=== PATIENT | female | born 1965 ===

== ENCOUNTER 2017-10-12 21:43 | Emergency (ER) | payer BC ==
--- NOTE | 2017-10-12 22:09 | EDM.PDOC ---
ED HPI GENERAL MEDICAL PROBLEM - General Chief Complaint: General Stated Complaint: FEEL SICK [id number] Time Seen by Provider: 10/12/17 22:01 Source of Information: Reports: Patient History Limitations: Reports: No Limitations - History of Present Illness INITIAL COMMENTS - FREE TEXT/NARRATIVE: Sick for one week with cough congestion no relief with OTC Middle Chest Pain Score (Numeric/FACES): 5 - Related Data Allergies Allergy/AdvReac Type Severity Reaction Status Date / Time No Known Allergies Allergy Verified 10/12/17 21:59 Home Meds: Home Meds Levothyroxine 112 mcg PO ACBREAKFAST 10/12/17 [History] metFORMIN HCl [Metformin HCl ER] 2,000 mg PO BID 10/12/17 [History] Past Medical History Endocrine/Metabolic History: Reports: Diabetes, Type II, Hypothyroidism Social & Family History - Tobacco Use Smoking Status *Q: Never Smoker Second Hand Smoke Exposure: Yes - Caffeine Use Caffeine Use: Reports: Coffee - Recreational Drug Use Recreational Drug Use: No ED ROS GENERAL - Review of Systems Review Of Systems: See Below Constitutional: Reports: Fever, Malaise HEENT: Reports: Sinus Problem, Throat Pain (mild) Respiratory: Reports: Pleuritic Chest Pain (with cough), Cough Cardiovascular: Reports: No Symptoms GI/Abdominal: Reports: No Symptoms Musculoskeletal: Reports: No Symptoms Skin: Reports: No Symptoms Neurological: Reports: No Symptoms ED EXAM, GENERAL - Physical Exam Exam: See Below Exam Limited By: No Limitations General Appearance: Alert, Mild Distress Eye Exam: Bilateral Eye: EOMI Ear Exam: Bilateral Ear: Other (fluid, no redness) Nose: Clear Rhinorrhea, Other (congested) Throat/Mouth: No: Normal Voice (hoarse) Head: Atraumatic, Normocephalic, Sinus Tenderness Neck: Normal Inspection, Full Range of Motion. No: Lymphadenopathy (L), Lymphadenopathy (R) Respiratory/Chest: No Respiratory Distress, Other (loose bronchial cough) GI/Abdominal: Normal Bowel Sounds, Soft, Non-Tender Extremities: Normal Inspection Neurological: Alert, Oriented, Normal Cognition Psychiatric: Normal Affect Skin Exam: Warm, Dry, Intact, Pallor Course - Vital Signs Last Recorded V/S: Last Vital Signs Temp 97.2 F 10/12/17 21:48 Pulse 109 H 10/12/17 21:48 Resp 18 10/12/17 21:48 BP 165/98 H 10/12/17 21:48 Pulse Ox 98 10/12/17 21:48 - Orders/Labs/Meds Meds: Medications Discontinued Medications Generic Name Dose Route Start Last Admin Trade Name Ferny PRN Reason Stop Dose Admin Amoxicillin 500 mg 10/12/17 22:39 10/12/17 22:42 Amoxil PO 10/12/17 22:40 500 mg ONETIME ONE Administration Departure - Departure Time of Disposition: 23:02 Disposition: Home, Self-Care 01 Condition: Good Clinical Impression: Upper respiratory infection Qualifiers: URI type: unspecified URI Qualified Code(s): J06.9 - Acute upper respiratory infection, unspecified - Discharge Information Instructions: Upper Respiratory Infection, Adult, [id number] Forms: ED Department Discharge Additional Instructions: humidification rest tylenol or ibuprofen avoid decongestants use mucolytic products increase fluids amoxicillin 500mg three times daily for one week clinic follow up one week if not improving
[2017-10-12] MEDS ORDERED: Amoxicillin 500 MG Cap PO ONE (22:39)
== END 2017-10-12 23:11 | disposition home or self-care (01) ==
LOC: DL.ED 21:43
DX: J06.9 Acute upper respiratory infection, unspecified (principal); E11.9 Type 2 diabetes mellitus without complications; E03.9 Hypothyroidism, unspecified
CPT/HCPCS: 71046; 99283; A9270